=== PATIENT | male | born 1995 | race African-American/Black ===

== ENCOUNTER 2018-01-06 15:11 | Emergency (ER) | payer OTHER ==
[2018-01-06] MEDS ORDERED: ACETAMINOPHEN 325 MG TABLET (FP) PO ONE (15:17)
[2018-01-06 15:18] VITALS: BP 131/72; PULSE 90; TEMP 98; BMI 21.4
--- NOTE | 2018-01-06 15:18 | PDOC ---
Rapid Medical Evaluation Time Seen by Provider: 01/06/18 15:12 Medical Evaluation: 01/06/18 15:13 The patient presents with a chief complaint of: Pain to R foot. Pt. works in [employer] and had a machine run over it at 2am this morning. Rates the pain a . Did not take any medication for pain I have performed a brief in-person evaluation of this patient; Pertinent physical exam findings: ambulatory, in no respiratory distress. Pain to palpation of the top of the R foot I have ordered the following: R foot x-ray, tylenol The patient will proceed to the ED for further evaluation.
[2018-01-06] MEDS ORDERED: ACETAMINOPHEN 325 MG TABLET (FP) ONE (15:35)
--- NOTE | 2018-01-06 16:33 | PDOC ---
History of Present Illness - General Chief Complaint: Injury Stated Complaint: RT FOOT INJURY Time Seen by Provider: 01/06/18 15:12 History Source: Patient Exam Limitations: No Limitations - History of Present Illness Initial Comments: 01/06/18 16:28 Sent here with right foot pain. States while at work this morning early, his motorized lifting machine, states machine backed up causing a crushing and hyper extension injury of his right great toe. Patient has complaints of pain, swelling to midfoot of right foot at MTP first and second digits. No other injury 01/06/18 20:07 Occurred: reports: just prior to arrival, this morning Severity: reports: mild, moderate Pain Location: reports: lower extremity Method of Injury: Yes: direct blow Modifying Factors: improves with: None Loss of Consciousness: no loss of consciousness Associated Symptoms (Fall): denies symptoms Past History - Travel Traveled outside of the country in the last 30 days: No Close contact w/someone who was outside of country & ill: No - Past Medical History Allergies/Adverse Reactions: Allergies Allergy/AdvReac Type Severity Reaction Status Date / Time Penicillins Allergy Severe Difficulty Verified 01/06/18 15:14 Breathing Home Medications: Ambulatory Orders NK [No Known Home Medication] 01/06/18 Asthma: Yes COPD: No - Suicide/Smoking/Psychosocial Hx Smoking History: Never smoked Have you smoked in the past 12 months: No Trauma Specific PMHX - Complaint Specific PMHX Back Injury: No Neck Injury: No Review of Systems - Review of Systems Able to Perform ROS?: Yes Is the patient limited Thai proficient: Yes Constitutional: Yes: Symptoms Reported, See HPI. No: Malaise Musculoskeletal: Yes: Symptoms Reported, See HPI, Joint Pain, Joint Swelling Integumentary: Yes: Symptoms Reported, See HPI, Bruising Neurological: No: Symptoms reported All Other Systems: Reviewed and Negative *Physical Exam - Vital Signs Last Vital Signs Temp Pulse Resp BP Pulse Ox 98 F 90 19 131/72 99 01/06/18 15:14 01/06/18 15:14 01/06/18 15:14 01/06/18 15:14 01/06/18 15:14 - Physical Exam General Appearance: Yes: Appropriately Dressed, Apparent Distress HEENT: positive: SUSAN, Normal ENT Inspection, TMs Normal, Pharynx Normal Neck: positive: Supple. negative: Lymphadenopathy (R), Lymphadenopathy (L) Respiratory/Chest: positive: Lungs Clear, Normal Breath Sounds Musculoskeletal: negative: Normal Inspection Extremity: positive: Normal Capillary Refill. negative: Normal Inspection, Normal Range of Motion (limited flexion and extension at toes secondary to tenderness pain and swelling to midfoot and medical tarsal area worse on great and second toe. No crepitus or step-offs, no ankle injury, neurovascular intact to toes) Integumentary: positive: Normal Color, Swelling, Bruising Neurologic: positive: cane loader II-XII NML intact, Fully Oriented, Alert, Normal Mood/ Affect, Normal Response, Motor Strength 02/12 ED Treatment Course - Medications Given in the ED: ED Medications Discontinued Medications Generic Name Dose Route Start Last Admin Trade Name Freq PRN Reason Stop Dose Admin Acetaminophen 650 mg 01/06/18 15:17 01/06/18 15:36 Tylenol - PO 01/06/18 15:18 650 mg ONCE ONE Administration Progress Note - Progress Note Progress Note: X-ray negative for fractures or dislocations, Warner wrap and cast shoe provided. Patient encouraged to use ibuprofen for pain relief and will follow up as needed for Orth O *DC/Admit/Observation/Transfer Diagnosis at time of Disposition: Contusion Qualifiers: Encounter type: initial encounter Contusion area: toe Toe: great toe Damage to nail status: without damage Laterality: right Qualified Code(s): S90.111A - Contusion of right great toe without damage to nail, initial encounter - Discharge Dispostion Disposition: HOME Condition at time of disposition: Stable Admit: No - Referrals Referrals: Demetri Ward MD [Staff Physician] - - Patient Instructions Printed Discharge Instructions: DI for Contusion Additional Instructions: Rest, ice to area on and off for 15 minutes 4-6 times a day Avoid heavy lifting or exercise until pain and swelling is resolved or until further directed Keep area highly elevated to reduce swelling Use splints/Warner wrap as directed Followup with orthopedist in one to 2 days if not improving, if significantly improved may wait one week for followup with orthopedist May use ibuprofen 2-200 mg tablets every 6 hours as needed for pain - Post Discharge Activity Forms/Work/School Notes: Back to Work
== END 2018-01-06 16:45 | disposition home or self-care (01) ==
LOC: JERFT 15:11
DX: S90.111A Contusion of right great toe without damage to nail, initial encounter (principal); W31.82XA Contact with other commercial machinery, initial encounter; Y93.89 Activity, other specified; Y92.59 Other trade areas as the place of occurrence of the external cause; Y99.0 Civilian activity done for income or pay
CPT/HCPCS: 73630-TC-RT-FY; 99281-25

== ENCOUNTER 2018-01-23 15:41 | Emergency (ER) | payer OTHER ==
[2018-01-23 15:53] VITALS: BP 130/60; PULSE 85; TEMP 98.4; BMI 21.7
--- NOTE | 2018-01-23 16:09 | PDOC ---
History of Present Illness - General Chief Complaint: Sore Throat Stated Complaint: LIGHTHEADED Time Seen by Provider: 01/23/18 15:55 History Source: Patient Exam Limitations: No Limitations (22y/o M with sorethroat and Yanes X 2 days, ) Past History - Travel Traveled outside of the country in the last 30 days: No Close contact w/someone who was outside of country & ill: No - Past Medical History Allergies/Adverse Reactions: Allergies Allergy/AdvReac Type Severity Reaction Status Date / Time Penicillins Allergy Severe Difficulty Verified 01/23/18 15:47 Breathing Home Medications: Ambulatory Orders Cetirizine HCl 10 mg PO DAILY #30 tablet 01/23/18 Ibuprofen 600 mg PO ACDIN #21 tablet 01/23/18 Asthma: Yes COPD: No - Suicide/Smoking/Psychosocial Hx Smoking History: Never smoked Have you smoked in the past 12 months: No Information on smoking cessation initiated: No Hx Alcohol Use: No Drug/Substance Use Hx: Yes Substance Use Type: Alcohol, Marijuana Review of Systems - Review of Systems Able to Perform ROS?: No Is the patient limited Venezuelan proficient: No Constitutional: No: Chills, Fever HEENTM: Yes: Nose Congestion, Throat Pain. No: Throat Swelling Respiratory: No: Cough, Shortness of Breath, Wheezing Cardiac (ROS): No: Chest Pain, Palpitations ABD/GI: No: Abdominal Distended, Abd. Pain w/ defecation Neurological: Yes: Headache. No: Seizure, Tingling, Tremors, Weakness *Physical Exam - Vital Signs Last Vital Signs Temp Pulse Resp BP Pulse Ox 98.4 F 85 16 130/60 100 01/23/18 15:49 01/23/18 15:49 01/23/18 15:49 01/23/18 15:49 01/23/18 15:49 - Physical Exam General Appearance: Yes: Nourished HEENT: positive: Tonsillar Erythema, Nasal Congestion, Rhinorrhea. negative: Muffled/Hoarse voice, Tonsillar Exudate, Sinus Tenderness, TM Erythema, Excessive drooling Neck: positive: Trachea midline, Normal Thyroid Respiratory/Chest: positive: Lungs Clear, Normal Breath Sounds Cardiovascular: positive: Regular Rate, S1, S2 Gastrointestinal/Abdominal: positive: Normal Bowel Sounds Neurologic: positive: information technology architect II-XII NML intact, Fully Oriented, Alert Medical Decision Making - Medical Decision Making 01/23/18 16:11 23-year-old male with Thraot pain, voice hoarseness and YANES and headaches for 3 days. Patient denies fever chills this am nausea/vomiting PE consistent with erythema in oropharynx non focal neuro exam viral uri 01/23/18 16:54 Rapid strep neg supportive measures advised *DC/Admit/Observation/Transfer Diagnosis at time of Disposition: Viral illness - Discharge Dispostion Disposition: HOME Admit: No - Prescriptions Prescriptions: Cetirizine HCl 10 mg PO DAILY #30 tablet Ibuprofen 600 mg PO ACDIN #21 tablet - Referrals - Patient Instructions Printed Discharge Instructions: Common Cold Additional Instructions: I discussed the physical exam findings, ancillary test results and final diagnoses with the patient. I answered all of the patient's questions. The patient was satisfied with the care received and felt comfortable with the discharge plan and treatment plan. The patient will call their primary care physician within 24 hours to arrange follow-up and will return to the Emergency Department with any new, persistant or worsening symptoms. - Post Discharge Activity Forms/Work/School Notes: Back to Work
== END 2018-01-23 16:55 | disposition home or self-care (01) ==
LOC: JERFT 15:41
DX: B34.9 Viral infection, unspecified (principal)
CPT/HCPCS: 87070; 87430; 99281-25